=== PATIENT | male | born 1950 | race Caucasian/White ===

== ENCOUNTER 2017-09-21 11:11 | Outpatient (CLI) | payer MEDICARE, BC | END 2017-09-21 23:59 | disposition home or self-care (01) | LOC: VAS 11:11 | PROVIDERS: ATTEND Surgery | DX: M79.89 Other specified soft tissue disorders (principal); Z98.890 Other specified postprocedural states | CPT/HCPCS: 93922; 93926 ==

== ENCOUNTER 2018-06-30 13:03 | Outpatient (CLI) | payer MEDICARE, BC | END 2018-06-30 23:59 | disposition home or self-care (01) | LOC: VAS 13:03 | PROVIDERS: ATTEND Surgery | DX: R60.0 Localized edema (principal); Z87.891 Personal history of nicotine dependence | CPT/HCPCS: 93971 ==

== ENCOUNTER 2019-04-27 12:22 | Outpatient (CLI) | payer MEDICARE, BC ==
[2019-04-27 13:01] LABS: BLOOD UREA NITROGEN 12 MG/DL (7-18); eGFR 84 ML/MIN
[2019-04-27] MEDS ORDERED: iohexol 350 MG/ML 50ML vial IV ONE (13:21)
[2019-04-27] MEDS ORDERED: iohexol 350MG/ML 100ml bottle IV ONE (16:12)
== END 2019-04-27 23:59 | disposition home or self-care (01) ==
LOC: 64 CT 12:22
PROVIDERS: ATTEND Surgery
DX: T85.898A Other specified complication of other internal prosthetic devices, implants and grafts, initial encounter (principal); I70.293 Other atherosclerosis of native arteries of extremities, bilateral legs; I70.8 Atherosclerosis of other arteries; I70.0 Atherosclerosis of aorta; I72.3 Aneurysm of iliac artery; K57.30 Diverticulosis of large intestine without perforation or abscess without bleeding; Z96.653 Presence of artificial knee joint, bilateral; Z87.891 Personal history of nicotine dependence; Y83.2 Surgical operation with anastomosis, bypass or graft as the cause of abnormal reaction of the patient, or of later complication, without mention of misadventure at the time of the procedure; Y92.89 Other specified places as the place of occurrence of the external cause
CPT/HCPCS: 36415; 73706; 82565; 84520; Q9967

== ENCOUNTER 2019-04-28 09:01 | Inpatient (IN) | payer MEDICARE, BC ==
[2019-04-28] MEDS ORDERED: dextrose 5%-lactated ringers 1,000 ML IV SCH (09:20)
[2019-04-28 11:39] LABS: BASOPHILS % (AUTO) 0.6 % (0-1); EOSINOPHILS # (AUTO) 0.1 X10'3 (0-0.9); EOSINOPHILS % (AUTO) 0.9 % (0-6); LYMPHOCYTES # (AUTO) 1.7 X10'3 (1.1-4.8); LYMPHOCYTES % (AUTO) 20.6 % (21-51); MEAN CORPUSCULAR HEMOGLOBIN 30.2 PG (27.0-31.0); MEAN CORPUSCULAR HGB CONC 33.3 g/dL (33.0-36.5); MEAN CORPUSCULAR VOLUME 90.6 FL (78-98); MEAN PLATELET VOLUME 8.1 FL (7.4-10.4); MONOCYTES # (AUTO) 0.8 X10'3 (0-0.9); MONOCYTES % (AUTO) 9.3 % (2-12); NEUTROPHILS # (AUTO) 5.6 X10'3 (1.8-7.7); NEUTROPHILS % (AUTO) 68.6 % (42-75); PRE OP HEMATOCRIT 42.7 % (42.0-52.0); PRE OP HEMOGLOBIN 14.2 g/dL (14.0-17.9); PRE OP PLATELET COUNT 289 X10'3 (140-440); RED BLOOD COUNT 4.72 X10'6 (4.70-6.10); RED CELL DISTRIBUTION WIDTH 15.4 % (11.5-14.5)
[2019-04-28] MEDS ORDERED: normal saline 1000ml 1,000 ML IV SCH (11:42)
[2019-04-28 11:45] LABS: ALBUMIN 4.3 G/DL (3.4-5.0); ANION GAP 14 (8-16); BLOOD UREA NITROGEN 10 MG/DL (7-18); BUN/CREATININE RATIO 10.6 (5.4-32.0); CALCIUM 9.3 MG/DL (8.5-10.1); CHLORIDE 106 MMOL/L (99-107); CREATININE 0.94 MG/DL (0.60-1.10); GLUCOSE 94 MG/DL (70-104); SODIUM 144 MMOL/L (135-145); TOTAL CARBON DIOXIDE 24.3 MMOL/L (24-32); eGFR 80 ML/MIN
[2019-04-28] MEDS ORDERED: fentaNYL/PF 50MCG/1 ML 2ML syringe IV PRN (11:45)
[2019-04-28] MEDS ORDERED: heparin 1,000 UNITS/NS 500ml 500 ML ICATH ONE (11:45)
[2019-04-28] MEDS ORDERED: midazolam 2 mg/2 ml injection IV PRN (11:45)
[2019-04-28] MEDS ORDERED: LIDOcaine 1%/PF 5ML 10 MG/ML VIAL SQ ONE (11:45)
[2019-04-28 11:48] LABS: POTASSIUM 4.5 MMOL/L (3.5-5.1)
[2019-04-28 11:52] LABS: PARTIAL THROMBOPLASTIN TIME 31 SECONDS (22-32)
== END 2019-04-28 12:44 | disposition home or self-care (01) | DRG 316 ==
LOC: SUR 3N 10:10
PROVIDERS: ADMIT Surgery; ATTEND Surgery
DX: T82.898A Other specified complication of vascular prosthetic devices, implants and grafts, initial encounter (principal); Y83.2 Surgical operation with anastomosis, bypass or graft as the cause of abnormal reaction of the patient, or of later complication, without mention of misadventure at the time of the procedure; Y92.89 Other specified places as the place of occurrence of the external cause
CPT/HCPCS: 36415; 80048; 85025; 85730; G0378; J7030; J7121